=== PATIENT | female | born 1970 | race Caucasian/White ===

== ENCOUNTER 2025-07-28 18:36 | Emergency (ER) | payer OTHER, SELFPAY ==
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
[2025-07-28 18:41] VITALS: BP 139/97; PULSE 82; RESP 18; TEMP 36.9; O2SAT 97
[2025-07-28 19:02] VITALS: BP 131/83; PULSE 80; RESP 20; O2SAT 95
[2025-07-28 19:09] LABS: Hematocrit 42.8 % (37.0-47.0); Hemoglobin 14.4 g/dL (12.0-15.0); Immature Granulocyte Percent A 0.5 % (0-0.5); Lymphocytes Absolute Auto 3.35 K/mm3 (0.9-3.2); Mean Corpuscular HGB Conc 33.6 g/dl (32-36); Mean Corpuscular Hemoglobin 30.6 pg (26-34); Mean Corpuscular Volume 91.1 fl (80-100); Nucleated Red Blood Cells Absolute Auto 0.000 K/mm3 (0.0-0.012); Nucleated Red Blood Cells Perc 0.0 % (0.0-0.2); Platelet Count Result 349 k/mm3 (150-375); Red Blood Count 4.70 M/mm3 (4.2-5.4); White Blood Count 12.0 K/mm3 (4.5-10.0)
[2025-07-28 19:19] LABS: Alanine Aminotransferase 24 U/L (6-35); Albumin Level 4.3 g/dL (3.5-5.1); Alkaline Phosphatase 127 U/L (38-126); Anion Gap 3 mmol/L (4-12); Aspartate Amino Transferase 26 U/L (14-36); Bilirubin,Total 0.7 mg/dL (0.2-1.3); Blood Urea Nitrogen 11 mg/dL (7-17); Calcium 9.4 mg/dL (8.4-10.2); Carbon Dioxide 29 mmol/L (22-30); Chloride 105 mmol/L (98-107); Estimated CRCL calculation 90 ml/min; Estimated Glomerular Filt Rate > 60; Glucose 94 mg/dL (65-110); Potassium 4.0 mmol/L (3.4-5.0); Sodium 137 mmol/L (137-145); Total Protein 7.7 g/dL (6.3-8.2)
[2025-07-28 19:24] LABS: Estimated CRCL calculation 86 ml/min; Estimated Glomerular Filt Rate > 60
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
[2025-07-28] MEDS: SODIUM CHLORIDE 0.9% IV 1,000 ML 999 ML IV CONT (20:30)
[2025-07-28] MEDS: MORPHINE SULFATE (*CRX) 4 MG/ML INJ IV PUSH (20:31)
--- OUTSIDE RECORDS SUMMARY | 2025-07-28 20:35 | XMS_ITS | Clinical Summary ---
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
--- OUTSIDE RECORDS SUMMARY | 2025-07-28 20:35 | XMS_ITS | Clinical Summary ---
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 Gender Identity Not on file Sexual Orientation Not on file Plan of Treatment Health Maintenance Due Date Last Done Comments Hepatitis C Virus (HCV) Screening 1970 TdaP Immunization 1970 Hepatitis B Immunization (1 of 3 - 19+ 3-dose series) 1989 Pap Smear 1991 Cervical Cancer Screening (CCS) 2000 HPV/Cotest 2000 Cologuard 2015 Colonoscopy 2015 Colorectal Cancer Screening 2015 Immunochemical Fecal Occult Blood 2015 Pneumococcal Immunization (5 0+ years) (1 of 1 - PCV) 2020 Zoster Immunization (1 of 2) 2020 Influenza Immunization (#1) 2025 SARS-COV-2 Immunization ( season) 2025 Respiratory Syncytial Virus (RSV) Immunization (Adult) (1 - 1-dose 75+ series) 2045 Human Papillomavirus (HPV) Immunization Aged Out No longer eligible b ased on patient's age to complete this topic Meningococcal Immunization (ACWY) Aged Out No longer eligible based on patient's age to complete this topic Rotavirus Immunization Aged Out No lo nger eligible based on patient's age to complete this topic
--- OUTSIDE RECORDS SUMMARY | 2025-07-28 20:35 | XMS_ITS | Clinical Summary ---
Author Organization [facility] Address [address] [place] [id number] Care Team Providers Care Theatrical Variety Agent Name Role Phone Unavailable Primary Care Provider Unavailabl e Social History Tobacco Use Types Packs/Day Years Used Date Smoking Tobacco: Never Assessed Comments Unknown Sex and Gender Information Value Date Recorded Sex Assigned at Not on file Legal Sex Female 4:38 PM CDT Gender Identity Not on file Sexual Orientation Not on file Plan of Treatment Health Maintenance Due Date Last Done Comments Cervical Cancer Screening Pa p Smear (Age 30 to 64) Every 3 Years 1970 Colorectal Cancer Screening Colonoscopy (10 Years) 1970 Annual Physical 1973 Hepatitis C 1988 DTaP, Tdap and Td Vaccines ( 1 - Tdap) 1989 Hepatitis B Vaccines (1 of 3 - 19+ 3-dose series) 1989 Cervical Cancer Screening Pa p with HPV Testing (Age 30 to 64) Every 5 Years 2000 Cervical Cancer Screening with HPV 2000 Mammogram Screening 2010 Pneumococcal Vaccine: 50+ Ye ars (1 of 1 - PCV) 2020 Zoster Vaccines (1 of 2) 2020 COVID-19 Vaccine ( - 2024-2 6 season) 2025 Influenza Adult (#1) 2025 Hepatitis A Vaccines Aged Out No long er eligible based on patient's age to complete this topic Meningococcal B Vaccine Aged Out No l onger eligible based on patient's age to complete this topic Meningococcal Vaccine Aged Out No toshia sophia eligible based on patient's age to complete this topic RSV Immunizations Under 20 Months Aged Out No longer eligible based on patient's age to complete this topic
--- OUTSIDE RECORDS SUMMARY | 2025-07-28 20:35 | XMS_ITS | Clinical Summary ---
Author Organization [facility] Address [address] [place] [address] Care Team Providers Care Lead Pl Sql Developer Name Role Phone Bryan Long MD Primary Care Provider + Allergies Active Allergy Reactions Criticality Noted Date Comments Latex Rash Medium 05/18/2020 Morphine Nausea only,Vomiting Low 05/18/2020 Oxycodone-Acetaminop hen Other (See comments),Agitation Low 01/27/2024 Causes her to be angry and violent. OK with Hydrocodone Medications clonazePAM (KlonoPIN) 0.5 mg tabletIndication s:Depression Take 1 tablet (0.5 mg total) by mouth 2 (two) times a day 3 04/03/20 20 Active vortioxetine (TRINTELLIX) 20 mg tabletIndication s:major depressive disorder Take 1 tablet (20 mg total) by mouth every morning Active Ubrelvy 100 mg tablet May repeat dose once in 2 hours if no relief. Do not exceed 2 doses in 24 hours. 30 tablet 11 11/25/19 24 Active Additional Information Patient taking differently: 100 mg oral Once as needed (for prescriptions), migraine, May repeat dose once in 2 hours if no relief. Do not exceed 2 doses in 24 hours., Informant: Self, Reported on 05/03/2025 Lactobacillus rhamnosus GG (PROBIOTIC DIGESTIVE CARE ORAL) Take 1 tablet by mouth as needed (gut health) Active atomoxetine (STRATTERA) 40 mg capsuleIndicatio ns:Attention-Def icit Hyperactivity Disorder Take 1 capsule (40 mg total) by mouth daily Active hydroCHLOROthiaz barbie (MICROZIDE) 12.5 mg capsule TAKE 1 CAPSULE BY MOUTH EVERY DAY 90 capsule 3 03/26/[address] (VOLTAREN) 75 mg EC tablet Take 1 tablet (75 mg total) by mouth 2 (two) times a day 180 tablet 3 03/26/20 25 Active amlodipine-valsa rtan (EXFORGE) 10-320 mg per tablet TAKE 1 TABLET BY MOUTH EVERY DAY 90 tablet 2 05/18/20 25 Active valACYclovir (VALTREX) 1 gram tablet TAKE 1 TABLET BY MOUTH EVERY DAY (FOR OUTBREAKS) 30 tablet 07/28/20 25 Active valACYclovir (VALTREX) 1 gram tablet TAKE 1 TABLET BY MOUTH EVERY DAY (FOR OUTBREAKS) 30 tablet 03/09/20 25 2024 Discontinued Active Problems Problem Noted Date Diagnosed Date Tear of left rotator cuff 12/30/2023 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 Bronchitis 08/27/2021 Migraine with aura and witho ut status migrainosus, not intractable 02/14/2021 Contact with and (suspected) exposure to covid-1 9 11/12/2020 Overview (12/21/2023): Complete rupture of rotator cuff 06/13/2020 Overview (06/13/2020): Added automatically from request for surgery [id number] Primary osteoarthritis of both knees 01/06/2017 Need for prophylactic antibiotic 07/04/2015 Osteoarthritis of hip 02/25/2015 Cervical pain (neck) 12/22/2014 Inflammation of sacroiliac joint 03/10/2014 Sciatica 02/19/2014 Anxiety 02/01/2014 Chronic pain 02/01/2014 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 Have discussed implications of therapy compliance regarding future complications with the patient. Will continue current therapy Spinal stenosis of lumbar region 02/01/2014 Pain of foot 12/06/2013 Menorrhagia 03/29/2013 Osteoarthritis of cervical spine without myelopa thy 06/30/2012 Osteoarthritis of lumbar spine 06/30/2012 Resolved Problems Problem Noted Date Diagnosed Date Resolved Date Encounter for preventive health examination 08/13/2016 05/03/2025 Well adult exam 03/23/2009 05/03/2025 Encounters Date Type Department Care Team Description 05/30/2025 3:20 PM CDT - 05/30/2025 11:59 PM CDT Hospital Encounter [facility] Breast Imaging [address] [place] [address] Screening mammogram, encounter for Discharge Disposition: Discharge to home or self care 05/10/2025 Results Follow-Up [facility] Medicine Obstetrics and Gynecology [address] 7th [address] [place] [address] Milagros Barriga NP Pap and High Risk HPV and Genotyping (Cytology Component) 05/03/2025 7:10 PM CDT - 05/03/2025 11:59 PM CDT Hospital Encounter [facility] [address] [place] [address] Encounter for well woman exam with routine gynecological exam Discharge Disposition: Discharge to home or self care 05/03/2025 2:00 PM CDT Office Visit [facility] Medicine Obstetrics and Gynecology [address] 1st [address] [place] [address] Linh Hunter Rai, NP Encounter for well woman exam with routine gynecological exam (Primary Dx) from Last 3 Months Immunizations Immunization Administration Dates Next Due Influenza, Trivalent, IM (MDV) 06/06/2014,2012,09/16/2012 [employer] (J&J) SARS-CoV-2 Vaccination 11/28/2020 MMR 07/30/1995 Pfizer SARS-CoV-2 Monovalent Vaccination (12+ Yrs) GOMEZ-READY TO USE 03/11/2022 Surgical History Surgery Date Site/Laterality Comments OK INDUCED DILATION AND CURETTAGE Surgically Induced - (Added by TW Conv) OK DELIVERY ONLY Section Low Transverse - (Added by TW Conv) BACK SURGERY Back Surgery - 1990 DISSECTOMY 1997 DIFFUSION (Added by TW Conv) OK INJ LUMBAR/SACRAL,W/WO CNTRST Corticosteroid Injection Interlaminar Approach Lumbar - (Added by TW Conv) OK ARTHRP ACETBLR/PROX FEM PROSTC AGRFT/ALGRFT Total Hip Replacement - Hip replacements 2014 and 2015. (Added by TW Conv) CORTICOSTEROIDS INJECTION Corticosteroids Injection - bilateral knee injections with depomedrol (Added by TW Conv) FOOT SURGERY Right Ganglion cyst removal ROTATOR CUFF REPAIR 08/24/2019 - 08/23/2020 Right Medical History Medical History Date Comments Pain in knee Anxiety disorder HTN (hypertension) Depression DDD (degenerative disc disease), lumbar Adhd Heartburn Rotator cuff tear Obesity GERD (gastroesophageal reflux disease) Family History Medical History Relation Name Comments Diabetes type II Brother 1 Type 2 Diab etes Mellitus - (Added by TW Conv) Stroke Brother 2 Stroke Syndrome - (Added by TW Conv) Anxiety disorder Brother 3 Anxiety - ( Added by TW Conv) Depression Brother 4 Family history of depression - (Added by TW Conv) Hypertension Brother 5 Family history of hypertension - (Added by TW Conv) Stroke Brother 6 Family history of cerebrovascular accident - (Added by TW Conv) Anxiety disorder Father Anxiety - ( Added by TW Conv) Chronic Pain Father Chronic pain di sorder - (Added by TW Conv) Coronary artery disease Father Fami ly history of coronary artery disease - (Added by TW Conv) Depression Father Family history of depression - (Added by TW Conv) Heart disease Father Heart Disease - (Added by TW Conv) Hypertension Father Family history of hypertension - (Added by TW Conv) Hypertension Maternal Grandfather Hyperte nsion - (Added by TW Conv) Bladder Cancer Maternal Grandmother Bladd er Cancer - (Added by TW Conv) Hypertension Mother Hypertension - (Added by TW Conv)/Family history of hypertension - (Added by TW Conv) Depression Other 1 Family history of depression - Relation: Grandparent (Added by TW Conv) Coronary artery disease Other 2 Fami ly history of coronary artery disease - Relation: Grandparent (Added by TW Conv) Hypertension Other 3 Family history of hypertension - Relation: Grandparent (Added by TW Conv) Stroke Other 4 Family history of cerebrovascular accident - Relation: Grandparent (Added by TW Conv) Cancer Other 5 Family history of cancer - Relation: Grandparent (Added by TW Conv) Diabetes Other 6 Family history of diabetes mellitus - Relation: Grandparent (Added by TW Conv) Anxiety disorder Sister 1 Anxiety - ( Added by TW Conv) Depression Sister 2 Family history of depression - (Added by TW Conv) Anesthesia problems Neg Hx Relation Name Status Comments Brother 1 Brother 2 Brother 3 Brother 4 Brother 5 Brother 6 Father Maternal Grandfather Maternal Grandmother Mother Other 1 Other 2 Other 3 Other 4 Other 5 Other 6 Sister 1 Sister 2 Social History Tobacco Use Types Packs/Day Years Used Date Smoking Tobacco: Every Day Cigarettes Smokeless Tobacco: Never Tobacco Cessation:Ready to Q uit: Not Asked; Counseling Given: Not Answered Alcohol Use Standard Drinks/Week Comments Not Currently 0 (1 standard drink = 0.6 oz pur e alcohol) AUDIT-C Answer Date Recorded Q1: How often do you have a drink containing alc ohol? Monthly or less 01/12/2024 Q2: How many drinks containi ng alcohol do you have on a typical day when you are drinking? 1 or 2 01/12/2024 Q3: How often do you have si x or more drinks on one occasion? Never 01/12/2024 Personal Safety Answer Date Recorded Have you ever been in or are you currently in a harmful physical or emotional relationship or is someone making you feel afraid or unsafe? 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 Gender Identity Female 12/21/2020 9:47 AM CDT Sexual Orientation Choose not to disclose 2020 9:47 AM CDT Obstetrics History Para Term AB IAB SAB Ectopic Multiple Livin g Live Births 4 2 2 2 1 2 2 Date Outcome GA Total Labor Labor/2nd/3rd Weight Sex Type Anes PTL Yanci A1 A5 Name Clin AB Demise SAB Demise 2002 Term C-Sec tion Living 2005 Term C-Sec tion Living Last Filed Vital Signs Vital Sign Reading Time Taken Comments Blood Pressure 113/78 05/03/2025 2:03 PM CDT Pulse 92 05/03/2025 2:03 PM CDT Temperature 36 C (96.8 F) 01/28/2024 5:29 PM CDT Respiratory Rate 11 01/28/2024 5:10 PM CDT Oxygen Saturation 96% 03/15/2025 1:34 PM CDT Inhaled Oxygen Concentration - - Weight 95.3 kg (210 lb) 05/30/2025 3:30 PM CDT Height 172.7 cm (5' 8) 05/30/2025 3:30 PM CDT Body Mass Index 31.93 05/30/2025 3:30 PM CDT Plan of Treatment Health Maintenance Due Date Last Done Comments Colon Cancer Screening-Colonoscopy 1970 Depression Screening 1970 Hepatitis C Screening 1970 DTaP/Tdap/Td Vaccine (1 - Tdap) 1981 Hepatitis B Screening 1988 Pneumococcal vaccine <65 (1 of 2 - PCV) 1989 Zoster Vaccine (1 of 2) 2020 Covid-19 Vaccine (3 - season) 2025, 11/28/2020 Influenza Vaccine (#1) 2025 4, 06/08/2013, 09/16/2012 Lung Cancer Screening 04/14/2026 04/13/2025 Cervical Cancer Screening 05/03/2026 05/03/2025, 05/2025 Regular Well Visit/Exam 18-64 05/03/2026, 03/15/2025, 08/27/2021 Breast Cancer Screening-Mammogram 05/30/2026 05/30/2025, 09/04/2014, 03/29/2013 Medical Devices Implanted Type Area Hoop Coiler Device Identifier Shelf Expiration Date Model / Serial / Lot [employer] Ar-1927bct Corkscrew Suturetape 5.5mm 14.7mm Bioabsorbable Full Thread 1.3mm - [id number] Implanted:Qty: 1 on 07/02/2020 by Gus Eastman MD at [facility] Right: Shoulder [employer] 01/21/2022 AR-1927BCT / / [id number] [employer] Ar-1927bct Corkscrew Suturetape 5.5mm 14.7mm Bioabsorbable Full Thread 1.3mm - [id number] Implanted:Qty: 1 on 07/02/2020 by Gus Eastman MD at [facility] Right: Shoulder [employer] 02/20/2022 AR-1927BCT / / [id number] [employer] Ar-2324bcc Swivelock C 4.75mm 19.1mm Closed Eyelet Vent [place] Suture - [id number] Implanted:Qty: 1 on 07/02/2020 by Gus Eastman MD at [facility] Right: Shoulder [employer] 02/21/2024 AR-2324BCC / / [id number] [employer] Ar-2324bcc Swivelock C 4.75mm 19.1mm Closed Eyelet Vent [place] Suture - [id number] Implanted:Qty: 1 on 07/02/2020 by Gus Eastman MD at [facility] Right: Shoulder [employer] 02/21/2024 AR-2324BCC / / [id number] [employer] Ar-1927bct Corkscrew Suturetape 5.5mm 14.7mm Bioabsorbable Full Thread 1.3mm - S0 - [id number] Implanted:Qty: 1 on 07/02/2020 by Gus Eastman MD at [facility] [employer] 02/20/2022 AR-1927BCT / 0 / [id number] [employer] Ar-1927bct Corkscrew Suturetape 5.5mm 14.7mm Bioabsorbable Full Thread 1.3mm - S0 - [id number] Implanted:Qty: 1 on 07/02/2020 by Gus Eastman MD at [facility] [employer] 02/20/2022 AR-1927BCT / 0 / [id number] Biocomposite Swivelock Suture [place], Double Loaded With Peek Eyelet And Two #2 Tigertail Sutures Implanted:Qty: 1 on 01/28/2024 by Stu Cummings MD at [facility] Left: Shoulder [employer] 05/23/2025 AR-2323BCT -2 / / [id number] Description:BioComposite Swi veLock Suture [place], Double Loaded with PEEK Eyelet and Two #2 TigerTail Sutures Procedures Procedure Name Priority Date/Time Associated Diagnosis Comments SCREENING MAMMOGRAM BILATERAL W TONY Schedule Routine, Read Routine (OP Routine) 05/30/2025 3:37 PM CDT Screening mammogram, encounter for PAP AND HIGH RISK HPV, REFLEX TO GENOTYPING Routine 05/03/2025 2:24 PM CDT Encounter for well woman exam with routine gynecological exam HIGH RISK HPV DNA DETECTION WITH GENOTYPING Routine 05/03/2025 2:24 PM CDT Encounter for well woman exam with routine gynecological exam CT LUNG CANCER SCREENING Schedule Routine, Read Routine (OP Routine) 04/13/2025 2:54 PM CDT Personal history of nicotine dependence Nicotine dependence, cigarettes, uncomplicated from Last 3 Months or Most Recently Relevant to Health Maintenance Results * Screening Mammogram Bilateral W Tony (05/30/2025 3:37 PM CDT) Anatomical Region Laterality Modality Breast Bilateral Mammography Impressions 05/30/2025 4:15 PM CDT Bilateral No evidence of malignancy in either breast. OVERALL BI-RADS FINAL ASSESSMENT: 1 - Negative RECOMMENDATION: Recommend bilateral annual screening mammography. Narrative 05/30/2025 4:15 PM CDT EXAMINATION: Screening Mammogram Bilateral W Tony: 05/30/2025 COMPARISON: Relevant prior studies available at the time of interpretation were reviewed, including the most recent mammogram on: 09/05/2014. TECHNIQUE: Mammography was performed with 2D and 3D digital breast tomosynthesis (DBT) images. CAD was utilized. BREAST PARENCHYMAL COMPOSITION: The breasts are almost entirely fatty. FINDINGS: Bilateral There is no suspicious mass, calcification, or architectural distortion in either breast. us Bryan Long MD [facility] [place]ED[place] Fin al Result * High Risk HPV DNA Detection with Genotyping (Molecular component) (05/03/2025 2:24 PM CDT) Pathologist [facility] HPV HR 16 Not Detected Not Detected GUILLERMINA HPV HR 18 Not Detected Not Detected PAM SARMIENTO HPV HR Non 16/18 Not Detected Not Detected PAM WALLACE Comment: Interpretive Data Nucleic acid amplification for detection of high-risk Human Papilloma virus (HPV) is performed by the Eran Yoandy 6800 HPV test. This assay specifically detects HPV-16 and HPV-18 genotypes. The following HPV genotypes are detected as high-risk HPV: HPV-31, 33, 35, ,39, 45, 51, 52, 56, 58, 59, 66, and 68. This assay has been approved by the [place] Food and Drug Administration for detection of HPV in cervical specimens collected by a physician using an endocervical brush/spatula or cervical broom and placed in the ThinPrep Pap Test PreservCyt collection containers. The performance characteristics of this test have been verified by the [facility] Molecular Infectious Disease laboratory. Correlate with separately reported cytology results, as applicable. Interpretive data last revised 23 Endocervical 05/03/2025 2:24 PM CDT 05/04/2025 9:37 AM CDT Narrative [facility] - 05/08/2025 11:08 PM CDT Clinical history and diagnosis->screening Testing type->Screening Last menstrual period (date if known)->postmenopausal Menstrual status->Postmenopausal us Linh Hunter NP LAB BODY FLUIDS AND STOO LS ORDERABLES Final Result [facility] Department [place] [address] [facility] * Pap and High Risk HPV and Genotyping (Cytology Component) (05/03/2025 2:24 PM CDT) Thin prep (Pap test) 05/03/2025 2:24 PM CDT 05/03/2025 7:10 PM CDT Narrative PATHOLOGY [facility] - 05/10/2025 12:25 PM CDT EPIC results best viewed via link to PDF [facility] [place] [address] Note to Patients: This report may contain a detailed description of human tissue sent by a health care provider to the laboratory for pathologic evaluation. The content of this report is essential for diagnosis and may provide important critical findings. This information may be unfamiliar to patients to review without a medical professional present. It is advised that the patient review this report in the presence of a health care provider who can answer questions and explain the details. 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 Location: Patient Type: [facility] SPECIMEN Taken: 05/03/2025 Received: 05/03/2025 Accessioned: 05/04/2025 Reported: 05/10/2025 Physician(s): Linh Hunter NP FINAL INTERPRETATION SOURCE OF SPECIMEN Liquid based Thin Prep pap with HPV: STATEMENT OF ADEQUACY - Satisfactory for evaluation - No endocervical/transformation zone sample present in a post menopausal patient - Obscuring inflammation present GENERAL CATEGORIZATION: - Negative for squamous intraepithelial lesion or malignancy Comments (Normal-Negative for High Risk HPV) HPV HR 16- Not detected HPV HR 18-Not detected HPV HR non 16/18- Not detected Interpretive Data Nucleic acid amplification for detection of high-risk Human Papilloma virus (HPV) is performed by the Eran Yoandy 6800 HPV test. This assay specifically detects HPV- 16 and HPV-18 genotypes. The following HPV genotypes are detected as high-risk HPV: HPV-31, 33, 35, 39, 45, 51, 52, 56, 58, 59, 66, and 68. This assay has been approved by the [place] Food and Drug Administration for detection of HPV in cervical specimens collected by a physician using an endocervical brush/spatula or cervical broom and placed in the ThinPrep Pap Test PreservCyt collection containers. The performance characteristics of this test have been verified by the [facility] Molecular Infectious Disease laboratory. Correlate with reported cytology results, as applicable. Interpretive data last revised 23 tcg/05/10/2025 12:25 XIOMARA Bush (ASCP) Report Electronically Reviewed and Signed Out By XIOMARA Bush (ASCP) 05/10/2025 12:25:46 Cervicovaginal Cytology (Pap Test) Disclaimer: The Pap test is a screening test used to detect cervical cancer and its precursors; it is not a diagnostic procedure. False negative and false positive results do occur. Pap test results should be interpreted in the context of pertinent clinical information and biopsy results as indicated. [facility] Clinical Laboratory Improvement Amendments (CLIA) mandate that cytologic and histologic results be correlated for laboratory quality tech & improvement standards. FOR ALL HIGH-GRADE CASES we request submission of follow-up histological material and/or reports that have not been previously provided so that we may fulfill said required standards. Gross Description A. Liquid based Thin Prep pap with HPV: Cervical/vaginal - Screening ThinPrep Clinical Diagnosis and History Last Menstrual Period: Not Provided. Menstrual History: Post-menopausal The patient is a 54 year old female with screening. Report Images and scanned documents, if included only viewable in PDF version The performance characteristics of some immunohistochemical stains, in-situ hybridization and fluorescence in-situ hybridization tests and immunophenotyping by flow cytometry cited in this report (if any) were determined by the Surgical Pathology Department at [facility] as part of an ongoing air quality chemist program and in compliance with federally mandated regulations drawn from the Clinical Laboratory Improvement Act of 1988 (CLIA '88). Some of these tests rely on the use of analyte specific reagents and are subject to specific labeling requirements by the [place] Food and Drug Administration. Such diagnostic tests may only be performed in a facility that is certified by the Department of Health and Human Services as a high complexity laboratory under CLIA '88. The FDA has determined that such clearance or approval is not necessary. This test is used for clinical purposes. It should not be regarded as investigational or for research. Nevertheless, federal rules concerning the medical use of analyte specific reagents require that the following disclaimer be attached to the report: This test was developed and its performance characteristics determined by the Surgical Pathology Department of [facility]. It has not been cleared or approved by the [place]. [place]. Food and Drug Administration. Linh Strickland Wawrzyniak [employer] LAB CYTOLOGY ORDERABLES Final Result PATHOLOGY [facility] 3rd Floor [place], [place] [phone] * CT Lung Cancer Screening (04/13/2025 2:54 PM CDT) Anatomical Region Laterality Modality Chest N/A Computed Tomogra phy 04/22/2025 10:4 6 AM CDT Narrative 04/22/2025 10:50 AM CDT EXAM DESCRIPTION: CT LUNG CANCER SCREENING REASON FOR STUDY: Screening CT of the chest in a current smoker with a 20 pack year smoking history. Additional history: None. TECHNIQUE: Low dose CT scan of the chest was performed without intravenous contrast using helical scanning technique. The exam extends from the lung apices through the lung bases. Automatic exposure control was used as a dose optimization technique. NOTE: This study was performed for the specific purposes of lung cancer screening and is not an alternative to diagnostic chest CT. RADIATION DOSE: CT dose index volume (CTDIvol) = 4.82 mGy COMPARISON: None FINDINGS: SMOKING RELATED LUNG DISEASE: Minimal emphysematous changes identified. LUNG NODULES: There is a 3 mm nodule near the right apex (image 53). There is a 3 mm subpleural left lower lobe nodule (image 196) which is partially obscured. A 2nd 3 mm subpleural left lower lobe nodule (image 182) is apparent. There is a larger subpleural left lower lobe nodule (image 176) which measures 5 mm. CORONARY ARTERY CALCIFICATION: None OTHER: The heart is normal in size. No suspicious mediastinal or hilar lymphadenopathy seen. No pneumothorax or pleural effusion is identified. IMPRESSION: 1. Pulmonary nodules measuring up to 5 mm. Lung-RADS category 2: Benign appearance or behavior. Recommendation: Low dose Screening CT of chest in 12 months. THIS IS AN ELECTRONICALLY VERIFIED FINAL REPORT 04/22/2025 10:50 AM - Electronically signed by Mika Jiménez M.D. BS T: Report ID: [id number] Reading Location: [id number] Procedure Note Mika Jiménez MD - 04/22/2025 EXAM DESCRIPTION: CT LUNG CANCER SCREENING REASON FOR STUDY: Screening CT of the chest in a current smoker with a20 pack year smoking history. Additional history: None. TECHNIQUE: Low dose CT scan of the chest was performed without intravenous contrast using helical scanning technique. The exam extends from the lung apices through the lung bases. Automatic exposure control was used as adose optimization technique. NOTE: This study was performed for the specific purposes of lung cancer screening and is not an alternative to diagnostic chest CT. RADIATION DOSE: CT dose index volume (CTDIvol) = 4.82 mGy COMPARISON: None FINDINGS: SMOKING RELATED LUNG DISEASE: Minimal emphysematous changes identified. LUNG NODULES: There is a 3 mm nodule near the right apex (image 53).There is a 3 mm subpleural left lower lobe nodule (image 196) which is partially obscured. A 2nd 3 mm subpleural left lower lobe nodule (image 182) is apparent. There is a larger subpleural left lower lobe nodule (image 176) which measures 5 mm. CORONARY ARTERY CALCIFICATION: None OTHER: The heart is normal in size. No suspicious mediastinal or hilar lymphadenopathy seen. No pneumothorax or pleural effusion is identified. IMPRESSION: 1. Pulmonary nodules measuring up to 5 mm. Lung-RADS category 2: Benign appearance or behavior. Recommendation: Low dose Screening CT of chest in 12 months. THIS IS AN ELECTRONICALLY VERIFIED FINAL REPORT 04/22/2025 10:50 AM - Electronically signed by Mika Jiménez M.D. BS T: Report ID: [id number] Reading Location: [place] [address] Bryan Long MD IMG CT PROCEDURES Final Result from Last 3 Months or Most Recently Relevant to Health Maintenance Insurance * Guarantor: Kristin Robb Account Type Relation to Patient Date of Phone Billing Address Personal/Family Self [address] [place] [phone] [facility] * Guarantor: Kristin Robb Account Type Relation to Patient Date of Phone Billing Address Personal/Family Self [address] [place] [id number] [facility] [phone] [place] [address] * Guarantor: Kristin Robb Account Type Relation to Patient Date of Phone Billing Address Personal/Family Self [address] [place] [phone] [facility] * Guarantor: [facility] Account Type Relation to Patient Date of Phone Billing Address Workers Comp Employer [employer] [address] Sql Developer Relationship Specialty Start Date End Date Bryan Long MD PCP - General 12/30/16
--- OUTSIDE RECORDS SUMMARY | 2025-07-28 20:35 | XMS_ITS | Encounter Summary ---
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
[2025-07-28 21:06] LABS: Add Urine Microscopic? YES; Appearance Urine Clear (Clear); Glucose Urine UA Negative (Negative); Leukocyte Esterase Ur 3+ LEU/UL (Negative); Nitrate Urine Negative (Negative); Non Pathogenic Casts 0-2; Specific Grav Ur 1.022 (1.001-1.035)
[2025-07-28] MEDS: TIZANIDINE HCL 4 MG TABLET PO (22:25)
[2025-07-28] MEDS: KETOROLAC 15 MG/ML VIAL (*BKC) IV PUSH (22:25)
[2025-07-28] MEDS: NITROFURANTOIN MONOHYD MACROCR 100 MG CAP PO (22:26)
[2025-07-28] MEDS: LIDOCAINE 5% PATCH 1 PATCH TRANSDERM (22:26)
[2025-07-28 22:42] VITALS: BP 142/72; PULSE 78; RESP 20; TEMP 36.8; O2SAT 99
== END 2025-07-28 22:43 | disposition home or self-care (01) ==
PROVIDERS: Emergency Provider Registered Nurse
DX: S06.0X0A Concussion without loss of consciousness, initial encounter (principal); S39.012A Strain of muscle, fascia and tendon of lower back, initial encounter; S13.4XXA Sprain of ligaments of cervical spine, initial encounter; R07.89 Other chest pain; T14.8XXA Other injury of unspecified body region, initial encounter; N39.0 Urinary tract infection, site not specified; I10 Essential (primary) hypertension; Z96.643 Presence of artificial hip joint, bilateral; Z98.1 Arthrodesis status; V49.40XA Driver injured in collision with unspecified motor vehicles in traffic accident, initial encounter
CPT/HCPCS: 36415; 70450; 71260; 72125; 72129; 72132; 74177; 80053; 81001; 85025; 86850; 86900; 86901; 87086; 96361; 96374; 96375; 99284; A9270; J1885; J2270; J7030; Q9967